=== PATIENT | male | born 1980 | race Caucasian/White ===

== ENCOUNTER 2022-09-24 14:03 | Outpatient (CLI) | payer OTHER ==
[2022-09-24 14:52] VITALS: BP 120/84
--- NOTE | 2022-09-24 14:52 | SLEEP CARE CONSULTATION ---
Information from patient questionnaire entered by Delfin Toney. I have reviewed and concur with the information entered by Delfin Toney. This document represents the service I personally performed and the decisions made by me, Liana Galaviz ARNP. History of Present Illness Service Date and Time: 09/24/2022 1403 Reason for Visit: New patient Chief Complaint: reports: Snoring, Observed pauses in breathing, Fatigue, Frequent awakenings at night Date of Onset: since 2006 haven't slept well, pauses in breathing noticed 3months ago Usual bedtime: 9pm Time it takes to fall asleep: 2 hours Snores at night: Yes Observed to quit breathing while asleep: Yes Sleeps alone due to snoring: No Number of times waking at night: 3-4 times Reasons for waking at night: reports: Other (unknown reason ). denies: Choking, Snoring, Gasping for air Toss, Turn, or Twitch while sleeping: Yes Recalls having dreams: No Usually gets out of bed at: 6am Feels refreshed in the morning: No Morning headache: Yes (3-4 times a week; resolves in 1-3 hours ) Sleepy or fatigued during the day: Yes Ever fallen asleep while driving: No Takes day naps: No Dreams during day naps: No Prior sleep studies: No Additional HPI information: I had the pleasure of seeing ROSEMARY WHITTAKER today regarding the possibility of him having a sleep disorder. His current complaints are snoring, observed pauses in breathing, fatigue and frequent night awakenings. He saw his PCP for his aries blood pressure and after evaluation of his sleep they recommended he have a sleep study. He states he has not slept well since 2006, he was deployed to [place] at that time. He was working nights and sleeping during the day when it was very light out. Since he has found it more difficult to fall asleep, taking up to 2 hours. Once he is able to go to sleep, he will wake up several times a night and he always wakes up tired. He sometimes does not feel he is sleeping, just laying in his bed, but has noted time passing like he was asleep for a couple hours. His has told him that he stops breathing when sleep and that he snores. - Parasomnia Symptoms Ever been unable to move upon waking from sleep: No Walks in sleep: No Talks in sleep: No Ever acted out dreams in sleep: No Ever felt weak in the knees when startled or emotional: No Bothered by creepy, crawly, restless sensations in legs: No Problems with memory or concentration: No Subjective Initial [place] Sleepiness Scale score: 12 (09/24/22) Past Medical History Past Medical History: reports: Hypertension, Other (back pain, in PT) Social History The patient's occupation is a [employer]. Patient is and lives in . Have you smoked in the past 12 months: No Cigarettes per day (20/pack): 20 Years of smokin Quit date: 2018 Smoking Pack Years: 10.0 Alcohol use: No Caffeine use: Yes Caffeine amount and frequency: 3 sodas a day Family History Family history of sleep disordered breathing: Yes Family Hx Sleep Apnea: Father: Snoring, Sleep apnea - Treated, Sibling: Snoring, Sleep apnea - Treated Allergies and Home Medications Known drug allergies: No Drug allergies reviewed: Yes (NKDA) Home medication list reviewed: Yes Allergy and home medication list: Medications: Lisinopril 5 mg Tylenol, prn Ibuprofen, prn Review of Systems Weight gain over past 5 years: 30 Cardiovascular: reports: high blood pressure, palpitations (being check at this time, started in February) Respiratory: denies: shortness of breath Gastrointestinal: denies: heartburn Neurological: reports: headaches Psychiatric: denies: anxiety, depression Ear/Nose/Throat: reports: dry mouth/throat, wisdom teeth removed. denies: tonsillectomy Physical Exam Vital signs obtained and entered by: DANIEL MOYA Blood Pressure: 120/84 (left arm ) Cuff size: long (82) Heart Rate: 88 O2 Saturation: 97 Height: 6 ft 2 in Weight: 288 lb Body Mass Index: 36.9 BMI Classification: Obese Neck circumference: 20 (inches ) Mouth and throat: normal Soft palate: long Hard palate: normal Uvula: normal Uvula visualization: 50% Mallampati Class II Tongue: enlarged in size with teeth santiago on lateral edges Tonsils: 1+ Neck: normal w/o lymphadenopathy or thyromegaly Heart: regular rate and rhythm Lungs: clear bilaterally Impression and Plan 1. Suspected Obstructive Sleep Apnea-Hypopnea Syndrome, as suggested by a history of loud and irregular snoring, observed cessation of breath while asleep, morning headache, frequent awakening during the night, unrefreshed sleep, and excessive daytime sleepiness. Narrow oropharynx and obesity are common predisposing factors for obstructive sleep apnea-hypopnea syndrome. I recommend proceeding to polysomnography to confirm the diagnosis and to assess severity. If the patient has significant sleep disordered breathing, a manual CPAP titration study will also be performed to find the optimal treatment pressure. I informed the patient of what the sleep studies involve and after some discussion, obtained agreement to proceed. The pathophysiology of obstructive sleep apnea-hypopnea syndrome was discussed with the patient and health risks of cardiovascular and cerebrovascular disease if not treated. Risks of drowsy driving discussed in detail and patient advised to avoid long distance driving and to wool puller at the first sign of drowsiness. Patient agreed to plan. * Schedule polysomnography * Avoid long distance driving or driving when feeling sleepy. * Avoid alcohol, sedative and muscle relaxant around bedtime. * Attempt to lose weight. * Review instructions provided by trained office staff on how to prepare for the sleep study. * Return for follow-up after sleep study completed. Counseling Topics: Weight loss health impact Visit Type: In Office Time Spent with Patient (minutes): 30 Provider Statement: I spent 100% of the Face to Face Visit with the patient with greater than 50% spent counseling the patient and coordination of care.
== END 2022-09-24 14:04 | disposition home or self-care (01) ==
LOC: SC 14:03
PROVIDERS: ATTEND Nurse Practitioner Family
DX: R06.83 Snoring (principal); R06.81 Apnea, not elsewhere classified; R51.9 Headache, unspecified; G47.10 Hypersomnia, unspecified; I10 Essential (primary) hypertension; E66.9 Obesity, unspecified; Z68.36 Body mass index [BMI] 36.0-36.9, adult; Z87.891 Personal history of nicotine dependence
CPT/HCPCS: 99203; 99212

== ENCOUNTER 2022-10-18 20:28 | Outpatient (CLI) | payer OTHER | END 2022-10-18 20:29 | disposition home or self-care (01) | LOC: SC 20:28 | PROVIDERS: ATTEND Nurse Practitioner Family | DX: G47.33 Obstructive sleep apnea (adult) (pediatric) (principal); I10 Essential (primary) hypertension | CPT/HCPCS: 95810 ==

== ENCOUNTER 2022-10-28 08:47 | Outpatient (CLI) | payer OTHER ==
--- NOTE | 2022-10-28 09:32 | SLEEP CARE CONSULTATION ---
Information from patient questionnaire entered by Genesis Gabriel. I have reviewed and concur with the information entered by Genesis Gabriel. This document represents the service I personally performed and the decisions made by , Liana Galaviz ARNP. History of Present Illness Service Date and Time: 10/28/2022 0847 Initial [place] Sleepiness Scale score: 12 (09/24/22) Current [place] Sleepiness Scale score: 12 (10/28/22) Additional HPI information: ROSEMARY WHITTAKER returns for follow up and results of the recently performed polysomnography. I explained the pathophysiology behind obstructive sleep apnea. We then spent quite a bit of time discussing different treatment options. For mild obstructive sleep apnea, surgery and oral appliance are alternatives to nasal CPAP therapy but in moderate or severe cases, nasal CPAP is the most effective and reliable treatment. Because apnea is primarily in supine position, then positional management therapy could be effective. Methods discussed such as positioning with pillows to prevent supine sleep. I reviewed the impact of weight changes on sleep apnea and strongly recommended losing weight. After some discussion, the patient opted to go with the nasal CPAP therapy. Nasal autoCPAP set at 4-15 cmH20 will be ordered with rationale explained. A manual titration study will be ordered if unable to find optimal pressure with office adjustments. I explained how CPAP machine works and what to expect when using the machine. Using CPAP every night in order to get used to it was emphasized. Patient advised to put CPAP mask on before getting into bed so as not to fall asleep w ithout CPAP. To assist acclimation to CPAP use, it could also be used for a short time during day while reading or watching TV. The patient was instructed to call the CPAP supplier to discuss any mechanical problem that may occur. If the mask given is uncomfortable or is difficult to keep on through the night even with adjustment, contact the CPAP supplier as many will replace with another mask style if notified before 30 days. If snoring or perceives is not getting enough air or too much air from the machine, notify this office. Patient does not drink alcohol. Patient was cautioned about risks of drowsy driving until sleepiness symptoms resolve. Patient denies drowsy driving. Sleep Study - Results Type of Sleep Study: Polysomnography (COMPLETED 10/18/22) Prior sleep studies: No Polysomnography/Home Sleep Study results: IMPRESSION: The quality of the study is good. The patient had reduced sleep efficiency due to two prolonged awakenings during the night. The sleep architecture was abnormal for sleep fragmentation and reduced amount of time spent in slow wave sleep (N3). Respiratory monitoring showed mild obstructive sleep apnea-hypopnea (AHI = 9.4) associated with frequent arousals, oxyhemoglobin desaturation and mild hypoxia (hi oxygen saturation of 86%). The respiratory events occurred almost exclusively during supine REM sleep (supine AHI = 17.5; nonsupine = 0.75). Snore was loud in intensity. There was no significant periodic leg movement of sleep. Cardiac rhythm was normal sinus rhythm without significant arrhythmia. No abnormal behavior (parasomnia) observed. Allergies and Home Medications Drug allergies reviewed: Yes (NKDA) Home medication list reviewed: Yes (no changes) Review of Systems Review of systems same as previous: Yes (no changes) Physical Exam Vital signs obtained and entered by: GENESIS Khanna MA Blood Pressure: 114/76 (LEFT ARM) Cuff size: regular Heart Rate: 71 O2 Saturation: 98 Height: 6 ft 2 in Weight: 294 lb Body Mass Index: 37.7 BMI Classification: Obese Impression and Plan 1. Obstructive Sleep Apnea-Hypopnea Syndrome, mild, with lowest oxygen saturation of 86%. Obviously this is the cause of the patients symptoms of unrefreshed sleep, and excessive daytime sleepiness. Positive pressure therapy could benefit hypertension. As mentioned above, the patient will be started on nasal autoCPAP therapy with pressure set at 4-15 cmH2O. A manual titration study will be completed if unable to find optimal treatment pressure with office adjustments. Compliance guidelines also reviewed. A copy of compliance guidelines will be given for reference at check out. Because the apnea is more severe supine, I instructed to avoid sleeping supine using pillow positioning until able to start CPAP use. * Nasal auto CPAP therapy, pressure at 4-15 cm H2O. * Attempt to lose weight. * Avoid alcohol consumption near bedtime. * Avoid supine sleep until using CPAP. * The patient is again cautioned about driving until sleepiness completely resolves. * Return one month after CPAP obtained. I will assess response to therapy and compliance at that time. Counseling Topics: Weight loss health impact Prescriptions: Auto CPAP Visit Type: In Office Time Spent with Patient (minutes): 21 Provider Statement: I spent 100% of the Face to Face Visit with the patient with greater than 50% spent counseling the patient and coordination of care.
[2022-10-28 09:33] VITALS: BP 114/76
== END 2022-10-28 08:48 | disposition home or self-care (01) ==
LOC: SC 08:47
PROVIDERS: ATTEND Nurse Practitioner Family
DX: G47.33 Obstructive sleep apnea (adult) (pediatric) (principal); E66.9 Obesity, unspecified; Z68.37 Body mass index [BMI] 37.0-37.9, adult
CPT/HCPCS: 99212; 99213

== ENCOUNTER 2023-01-22 15:19 | Outpatient (CLI) | payer OTHER ==
--- NOTE | 2023-01-22 15:47 | SLEEP CARE CONSULTATION ---
Information from patient questionnaire entered by Genesis Gabriel. I have reviewed and concur with the information entered by Genesis Gabriel. This document represents the service I personally performed and the decisions made by , Liana Galaviz ARNP. History of Present Illness Service Date and Time: 01/22/2023 1519 Previous diagnosis: Mild, Obstructive Sleep Apnea-Hypopnea Syndrome AHI: 9.4 (in 10/2022) Reason for follow up: first compliance Equipment type: CPAP (RESMED Airsense 11, s/u 11/2022) Equipment obtained from: [facility] (got initial supplies) Mask style: Nasal Backup mask available: No (will keep old mask when replaced) Last cushion change: 1 month Prior sleep studies: No Type of Sleep Study: Polysomnography (COMPLETED 10/18/22) HPI additional information: ROSEMARY WHITTAKER was diagnosed to have mild, AHI 9.4, obstructive sleep apnea- hypopnea syndrome and returned today for CPAP therapy first compliance follow- up. Sleep Study - Results Type of Sleep Study: Polysomnography (COMPLETED 10/18/22) Prior sleep studies: No CPAP Compliance Data - Data Reviewed with Patient Average duration of nightly device use: 6 HRS 13 MINS Compliance rate %: 93 (12/22/22-01/20/23; 29/30 days used) Current pressure setting (cmH2O): 4-15 (median 5.0, avg 7.3, max 8.7) Average residual AHI: 1.0 Central apnea: 0.1 Obstructive apnea: 0.5 Hypopnea: 0.2 Average large leak: 1.9 lpm Subjective Missed days of use due to: reports: travel Patient concerns: denies: aerophagia, mask discomfort, air blowing in eyes, mask leak noise, condensation in mask/hose, nasal congestion, dry mouth, nose, throat, epistaxis Observed to snore while using device: No Current pressure setting perceived as: comfortable (too low when first puts on) On therapy, patient: reports: sleeping better, awakening more refreshed, being more awake and alert during the day, more rested overall. denies: drowsiness while driving Initial [place] Sleepiness Scale score: 12 (09/24/22) Current [place] Sleepiness Scale score: 0 (01/22/23) Allergies and Home Medications Known drug allergies: No Drug allergies reviewed: Yes Home medication list reviewed: Yes (stopped lisinopril) Allergy and home medication list: Allergies No Known Drug Allergies Allergy (Verified 01/21/23 14:28) Review of Systems Review of systems same as previous: Yes (no changes) Physical Exam Vital signs obtained and entered by: GENESIS Khanna MA Blood Pressure: 132/82 (LEFT ARM) Cuff size: regular Heart Rate: 83 O2 Saturation: 97 Height: 6 ft 2 in Weight: 284 lb 6.4 oz Weight change since last visit: 10 lb loss Body Mass Index: 36.5 BMI Classification: Obese Impression and Plan 1. Obstructive Sleep Apnea-Hypopnea Syndrome, mild, with good treatment compliance and good apnea control. On CPAP therapy, the patient has better sleep quality and is more rested overall. Patient has significant improvement of their sleep apnea and is satisfied with current CPAP therapy. Patient feels the pressure is too low when he first puts his mask on at 4 cm H2O. He states once he gets to 5 cm H2O it is comfortable. The patients pressure will be changed to autoCPAP 6-9 cmH20 to reflect pressures being used. He also asked for the ramp to be turned off so it would start at higher pressure. This was done. Patient advised to contact me if pressure change is uncomfortable so that it can be adjusted. Goals for apnea control discussed. Patient's apnea severity and rationale for treatment to reduce apnea, improve sleep quality and reduce cardiovascular and cerebrovascular events was reviewed. I also reviewed the benefit of consistent device use of CPAP for hypertension. He tells me he will be transferring at beginning of March. We will get him in for one last visit before he leaves the area. 2. Obesity, unspecified. Currently patients BMI is 36.5. He has lost 10 pounds since starting CPAP therapy. Obesity increases the risk of apnea, CPAP pressure requirements and overall health risks especially cardiovascular and diabetes. Thus patient is advised to continue to try to lose weight. * Change auto CPAP pressure to 6-9 cmH2O * Notify me if snoring with mask or feeling that the pressure is too much or too little * Continue to try to lose weight * Call this office if any problems using CPAP * Return for follow up in 1-2 months, or sooner if concerns arise Counseling Topics: Spare mask, Weight loss health impact Visit Type: In Office Time Spent with Patient (minutes): 20 Provider Statement: I spent 100% of the Face to Face Visit with the patient with greater than 50% spent counseling the patient and coordination of care.
[2023-01-22 15:57] VITALS: BP 132/82
== END 2023-01-22 15:20 | disposition home or self-care (01) ==
LOC: SC 15:19
PROVIDERS: ATTEND Nurse Practitioner Family
DX: G47.33 Obstructive sleep apnea (adult) (pediatric) (principal); E66.9 Obesity, unspecified; Z68.36 Body mass index [BMI] 36.0-36.9, adult
CPT/HCPCS: 99212; 99213

== ENCOUNTER 2023-02-16 11:20 | Outpatient (CLI) | payer OTHER ==
--- NOTE | 2023-02-16 11:42 | Sleep Patient Instructions ---
Sleep Center Visit Summary - Patient Visit Information Reason for Visit: 1 month follow up for CPAP therapy - Patient Instructions Additional Instructions: You were here for follow up of CPAP therapy. You will be continued on CPAP therapy with pressure at 6-9 cmH2O. Please make sure to establish with a sleep provider where you are relocating. You should follow up with sleep care if able in 6 months. You may contact us sooner for any questions or concerns. - Clinic Information Contact: [facility] [address] [place] [id number] [email or web address] T: [phone]
--- NOTE | 2023-02-16 11:54 | SLEEP CARE CONSULTATION ---
Information from patient questionnaire entered by Dipesh Gabriel. I have reviewed and concur with the information entered by Dipesh Gabriel. This document represents the service I personally performed and the decisions made by , Liana Galaviz ARNP. History of Present Illness Service Date and Time: 02/16/2023 1120 Previous diagnosis: Mild, Obstructive Sleep Apnea-Hypopnea Syndrome AHI: 9.4 (in 10/2022) Reason for follow up: one month (F/U) Equipment type: CPAP (RESMED Airsense 11, s/u 11/2022) Equipment obtained from: [facility] Mask style: Nasal Backup mask available: No (will keep old mask when replaced) Last cushion change: has not changed it yet Prior sleep studies: No Type of Sleep Study: Polysomnography (COMPLETED 10/18/22) HPI additional information: ROSEMARY WHITTAKER was diagnosed to have mild, AHI 9.4, obstructive sleep apnea-hy popnea syndrome and returned today for CPAP therapy one month with pressure change follow-up. Sleep Study - Results Type of Sleep Study: Polysomnography (COMPLETED 10/18/22) Prior sleep studies: No CPAP Compliance Data - Data Reviewed with Patient Average duration of nightly device use: 7 HRS 28 MINS Compliance rate %: 97 (01/16/23-02/14/23; 30/30 days used) Current pressure setting (cmH2O): 6-9 Average residual AHI: 0.6 Central apnea: 0.1 Obstructive apnea: 0.2 Average large leak: 3.8 l/min Subjective Patient concerns: denies: aerophagia, mask discomfort, air blowing in eyes, mask leak noise, condensation in mask/hose, nasal congestion, dry mouth, nose, throat, epistaxis Observed to snore while using device: No Current pressure setting perceived as: comfortable On therapy, patient: reports: sleeping better, awakening more refreshed, being more awake and alert during the day, more rested overall. denies: drowsiness while driving Initial [place] Sleepiness Scale score: 12 (09/24/22) Current [place] Sleepiness Scale score: 0 (02/16/23) Allergies and Home Medications Known drug allergies: No Drug allergies reviewed: Yes Home medication list reviewed: Yes (no changes) Allergy and home medication list: Allergies No Known Drug Allergies Allergy (Verified 02/15/23 09:13) Review of Systems Review of systems same as previous: Yes (no changes) Physical Exam Vital signs obtained and entered by: DIPESH Khanna MA Blood Pressure: 128/76 (LEFT ARM) Cuff size: regular Heart Rate: 74 O2 Saturation: 98 Height: 6 ft 2 in Weight: 277 lb 12.8 oz Weight change since last visit: 7 lb loss Body Mass Index: 35.6 BMI Classification: Obese Impression and Plan 1. Obstructive Sleep Apnea-Hypopnea Syndrome, mild, with good treatment compliance and good apnea control. On CPAP therapy, the patient has better sleep quality and is more rested overall. Patient has significant improvement of their sleep apnea and is satisfied with current CPAP therapy. Patient denies problems with oral dryness, nasal congestion, epistaxis, skin irritation or aerophagia. Patient's apnea severity and rationale for treatment to reduce apnea, improve sleep quality and reduce cardiovascular and cerebrovascular events was reviewed. I also reviewed the benefit of consistent device use of CPAP for hypertension. 2. Obesity, unspecified. Currently patients BMI is 35.6. He has lost weight. Obesity increases the risk of apnea, CPAP pressure requirements and overall health risks especially cardiovascular and diabetes. Thus patient is advised to continue to try to lose weight. * Continue auto CPAP pressure at 6-9 cmH2O * Notify me if snoring with mask or feeling that the pressure is too much or too little * Continue to try to lose weight * Call this office if any problems using CPAP * Return for follow up in 6 months, or sooner if concerns arise Counseling Topics: Spare mask, Weight loss health impact Follow up with Sleep Care in: 6 months Visit Type: In Office Time Spent with Patient (minutes): 13 Provider Statement: I spent 100% of the Face to Face Visit with the patient with greater than 50% spent counseling the patient and coordination of care.
[2023-02-16 11:55] VITALS: BP 128/76
== END 2023-02-16 11:21 | disposition home or self-care (01) ==
LOC: SC 11:20
PROVIDERS: ATTEND Nurse Practitioner Family
DX: G47.33 Obstructive sleep apnea (adult) (pediatric) (principal); E66.9 Obesity, unspecified; Z68.35 Body mass index [BMI] 35.0-35.9, adult
CPT/HCPCS: 99212; 99213